=== PATIENT | male | born 1955 | race Caucasian/White ===

== ENCOUNTER 2017-07-24 12:23 | Day surgery (SDC) | payer OTHER ==
[2017-07-24 14:15] VITALS: BP 169/82; PULSE 87; RESP 20; TEMP 98.1; O2SAT 97
[2017-07-24] MEDS ORDERED: LIDOCAINE HCL 1% 20 ML VIAL ONE (14:26)
[2017-07-24 14:30] VITALS: BP 154/86; PULSE 92; RESP 20; O2SAT 98
--- NOTE | 2017-07-24 16:42 | RADRPT ---
EXAM DATE/TIME: 07/24/2017 13:00 [place] COMPARISON: No previous studies available for comparison. INDICATIONS : Right neck mass. MEDICAL HISTORY : Hypertension. SURGICAL HISTORY : None. ENCOUNTER: Initial ACUITY: 1 day PAIN SCORE: 2/10 LOCATION: Right neck ORGAN: Right neck mass. SPECIMENS: Two core specimen(s) submitted for pathologic evaluation. DEVICE: 18 gauge 6 cm Tem[place] needle Post procedure scanning reveals no hematoma or other complication. The possibility does exist that the tissue obtained will be non-diagnostic. If the sample is non-carine gnostic a repeat biopsy or surgical biopsy may need to be performed. TECHNIQUE: 1. Ultrasound guidance for needle biopsy. 2. Needle biopsy. The risks, benefits and alternatives to the procedure were explained and verbal and written consent w as obtained. The site was prepped in sterile fashion. Full sterile technique was used, including ca p, mask, sterile gloves and gown and a large sterile sheet. Hand hygiene and 2% chlorhexidine and/or betadine/alcohol prep was utilized per protocol for cutaneous antisepsis. The skin and subcutaneous tissues were infiltrated with local anesthetic solution. Sterile gel and sterile probe cover were u tilized for ultrasound guidance. With the patient on the ultrasound table, images were obtained. A needle was advanced into the identified target and the number of specimens as above obtained and nina bmitted for pathologic evaluation. The patient tolerated the procedure well and left the ultrasound suite in stable condition. CONCLUSION: Uncomplicated ultrasound guided needle biopsy of right neck mass. Luis F Herrera MD on July 24, 2017 at 16:40 Board Certified Radiologist. This report was verified electronically.
== END 2017-07-24 14:32 | disposition home or self-care (01) ==
LOC: HRAD 12:23 → HRIP 12:28 → HRAD 14:32
PROVIDERS: ATTEND Otolaryngology Otolaryngology/Facial Plastic Surgery
DX: C49.0 Malignant neoplasm of connective and soft tissue of head, face and neck (principal); I10 Essential (primary) hypertension
CPT/HCPCS: 20206; 76942; 88305; 88341; 88342